=== PATIENT | male | born 1960 | race Caucasian/White ===

== ENCOUNTER 2019-04-25 04:34 | Observation (INO) ==
[2019-04-25] MEDS ORDERED: Ipratropium/Albuterol Neb 3 ML IH ONE (04:37)
[2019-04-25] MEDS ORDERED: methylPREDNISolone 125 MG/2 ML VIAL IVP ONE (04:38)
--- NOTE | 2019-04-25 04:39 | Emergency Department Note ---
Disposition Clinical Impression: Acute exacerbation of chronic obstructive airways disease Disposition: Admitted As Inpatient Condition: Good Time of Disposition: 06:30 General Adult HPI - General Chief complaint: ED Shortness of Breath/Dyspnea Stated complaint: ru Time Seen by Provider: 04/25/19 04:35 Source: patient Mode of arrival: EMS Limitations: no limitations Nursing Notes Reviewed: Yes Vital Signs Reviewed: Yes - History of Present Illness HPI Narrative: Patient complains of increasing shortness of breath for the past month. He denies any chest pain has a cough that is been occasionally productive. He has not had a fever that he is aware of. He says he quit smoking a month ago. Onset (ago): month(s) (one month ago gradually worsening) Location: chest Radiation: non-radiation Pain Scale: 0 Consistency: constant Improves with: nothing Worsens with: nothing Associated symptoms: Reports: cough - Related Data Home Medications Medication Instructions Recorded Confirmed Ipratropium/Albuterol Neb [Duoneb] 3 ml IH Q6HR 10/28/15 04/25/19 Allergies Allergy/AdvReac Type Severity Reaction Status Date / Time aspirin Allergy Irritable Verified 11/14/15 09:37 acetaminophen [From Vicodin] AdvReac Hives Verified 11/14/15 09:37 hydrocodone [From Vicodin] AdvReac Hives Verified 11/14/15 09:37 mesalamine [From Asacol] AdvReac Irritable Verified 11/14/15 09:37 All systems ED: reviewed and negative except as stated. Review of Systems: As Per HPI Constitutional: Denies: fever, chills, weakness, weight change Eyes: Denies: eye pain, eye discharge, vision change ENT ED: Denies: ear pain, throat pain, dental pain, hearing loss, epistaxis, congestion, dysphagia Cardiovascular: Denies: chest pain, palpitations, dyspnea on exertion, edema, sy ncope Respiratory: Reports: as per HPI, cough, dyspnea, wheezes, sputum production (Occasional yellow sputum) Gastrointestinal: Denies: abdominal pain, nausea, vomiting, diarrhea, constipation, hematemesis, melena, hematochezia Genitourinary: Denies: urgency, dysuria, frequency, hematuria Musculoskeletal: Denies: back pain, neck pain, arthralgia, myalgia Integumentary: Denies: rash, abrasion, lesions Neurological: Denies: headache, weakness, numbness, paresthesias, confusion, abnormal gait, vertigo Psychiatric: Denies: anxiety, depression, suicidal thoughts, homicidal thoughts, auditory hallucinations, visual hallucinations Endocrine: Denies: fatigue Hematological/Lymphatic: Denies: easy bleeding, easy bruising Allergic/Immunologic: Denies: facial swelling, urticaria Past Medical History - Past Medical History Attestation: Yes The following information was validated with the patient. Source: patient, nursing notes reviewed Medical history: Reports: COPD Psychiatric history: Reports: no psych history - Social History Smoking Status: Current every day smoker Alcohol use: Reports: occasionally Drug use: Reports: none Physical Exam - General Limitations: no limitations General appearance: alert, in no apparent distress - Head Head exam: atraumatic, normocephalic, normal inspection - Eye Eye exam: Present: normal appearance, PERRL, EOMI - ENT ENT exam: normal exam, normal oropharynx, mucous membranes moist - Neck Neck exam: Present: normal inspection, full ROM, trachea midline - Chest Chest inspection: Present: normal inspection, symmetric chest wall rise - Respiratory Respiratory exam: Present: respiratory distress (mild), wheezes, accessory muscle use, prolonged expiratory phase - Cardiovascular Cardiovascular exam: Present: regular rate, normal rhythm, normal heart sounds - Abdominal Exam Abdominal exam: Present: soft, Non-Tender. Absent: tenderness, distention, guarding, rebound, rigidity - Extremities Exam Extremities exam: Present: normal inspection, full ROM. Absent: tenderness, pedal edema - Back Exam Back exam: Present: normal inspection, full ROM. Absent: tenderness - Neurological Exam Neurological exam: Present: alert, oriented X3 - Psychiatric Psychiatric exam: Present: normal affect, normal mood - Skin Skin exam: Present: warm, dry, intact Medical Decision Making - [facility] Narrative Medical decision making narrative: I reviewed the patient's medication list Case was discussed with Dr. Shelby who graciously accepted admission - Lab Data Lab results reviewed: Yes I reviewed the patient's lab results. - Radiology Data Radiology results reviewed: Yes I reviewed the patient's radiology results. - EKG Data EKG #1 EKG attestation: Yes I reviewed and interpreted this EKG. EKG results narrative: EKG shows sinus tachycardia 3-119 bpm. MI interval 160 ms [place] 88 ms QTc interval 319 449 ms respectively R axis of [address] elevation is appreciated
[2019-04-25 05:14] LABS: Basophils # 0.1 K/mcL (0.0-0.2); Basophils % 0.6 %; Eosinophils # 0.8 K/mcL (0.0-0.6); Eosinophils % 6.6 %; Hematocrit 45.6 % (37.5-50.1); Immature Granulocytes % 0.2 % (0-4); Lymphocytes % 16.2 %; Mean Corpuscular HGB Conc 32.9 g/dL (31.6-35.5); Mean Corpuscular Hemoglobin 30.2 pg (28.0-33.3); Mean Corpuscular Volume 91.9 fL (83.0-100.0); Mean Platelet Volume 9.7 fL (9.4-12.4); Monocytes # 0.7 K/mcL (0.0-1.3); Monocytes % 5.4 %; Neutrophils # 8.8 K/mcL (1.6-8.9); Platelet Count 307 K/mcL (140-400); Red Blood Count 4.96 M/mcL (4.19-5.50); Red Cell Distribution Width 12.8 % (11.5-14.5); White Blood Count 12.4 K/mcL (4.3-11.1)
[2019-04-25 05:36] LABS: Alanine Aminotransferase 12 Units/L (7-52); Albumin 4.1 g/dL (3.5-5.7); Albumin/Globulin Ratio 1.1 (1.1-2.2); Alkaline Phosphatase 80 Units/L (34-104); Aspartate Amino Transferase 14 Units/L (13-39); BUN/Creatinine Ratio 17 (6-26); Bilirubin,Total 0.4 mg/dL (0.3-1.0); Blood Urea Nitrogen 17 mg/dL (6-20); Calcium 9.4 mg/dL (8.6-10.3); Carbon Dioxide 30 mEq/L (23-29); Chloride 101 mEq/L (98-107); Globulin 3.8 g/dL (2.4-3.5); Glucose 120 mg/dL (70-105); Osmolality,Calculated 291 (280-300); Potassium 4.1 mEq/L (3.5-5.1); Sodium 139 mEq/L (136-145); Total Protein 7.9 g/dL (6.4-8.9); Troponin I < 0.03 ng/mL (< 0.04); eGFR For African Americans > 60 (> 60); eGFR For Non-African Americans > 60 (> 60)
[2019-04-25] MEDS ORDERED: cefTRIAXone 1,000 MG in 0.9 % Sodium Chloride Mini Bag 100 ML IVPB ONE (05:43)
[2019-04-25] MEDS ORDERED: Naloxone 0.4 MG/ML INJ IVP PRN (06:44)
[2019-04-25] MEDS: Ipratropium/Albuterol Neb 3 ML IH SCH ×5 (08:28→23:20)
--- NOTE | 2019-04-25 11:58 | Internal Med History&Physical ---
Date of Encounter: 04/25/19 Time of Encounter: 11:25 Assessment and Plan (1) Asthmatic bronchitis Current visit: Yes Status: Acute He will be started on IV antibiotics with lactobacillus and IV steroids. Chest CT will be done to further evaluate. Qualifiers: Asthma severity: unspecified severity Asthma complication type: with acute exacerbation Qualified Code(s): J45.901 - Unspecified asthma with (acute) exacerbation (2) Acute exacerbation of chronic obstructive airways disease Current visit: Yes Status: Acute Rx as above. Room air oximetry will be checked on 6 minute walk prior to discharge. (3) Hyperglycemia Current visit: Yes Status: Acute Hemoglobin A1c will be ordered. Recheck FBS in a.m. (4) Weight loss Current visit: Yes Status: Acute TSH and chest CT will be ordered. (5) Arthralgia Current visit: Yes Status: Acute Uric acid level will be ordered. Naprosyn will be given. Qualifiers: Joint pain location: unspecified Qualified Code(s): M25.50 - Pain in unspecified joint Internal Medicine - H&P: HPI Chief complaint: Dyspnea Admitted From: Emergency Dept Plans for Post Hospital Care: Home History of present illness: Mr. Lucas is a 58 year old male who came to emergency room stating he had increased dyspnea over the past month. He reports significant cough with little productivity. He developed low back pain approximately 3 days previously which he attributes to severe coughing. His breathing seemed to worsen further so he came to emergency room. He was evaluated and felt to have exacerbation of COPD and was admitted to [facility] floor for ongoing care needs. Respiratory history is significant for having smoked since age 16 until quitting on month ago. He smoked up to 1-1/2 packs per day. PFTs 09/21/2015 showed FVC 70% predicted, FEV1 43% predicted, FEV1/FVC 47%, MVV 36% predicted, RV 179% predicted, and DLCO (uncorrected) 74% predicted. There was significant improvement in FEV1 postbronchodilator. He was diagnosed with moderate obstructive lung disease with air trapping. He does not use home oxygen. He reports he was diagnosed with pulmonary tuberculosis in childhood and received treatment for approximately one year. Past Med Surg Social Fam HX - Past Medical History Medical history: COPD Psychiatric history: no psych history - Social History Smoking Status: Former smoker Alcohol use: occasionally Drug use: none - Family History Mother Hx Family Respiratory Disorders: Yes Internal Medicine - H&P: Meds Ipratropium/Albuterol Neb [Duoneb] 3 ml IH Q6HR 10/28/15 [History] Allergy/AdvReac Type Severity Reaction Status Date / Time aspirin Allergy Irritable Verified 11/14/15 09:37 acetaminophen [From Vicodin] AdvReac Hives Verified 11/14/15 09:37 hydrocodone [From Vicodin] AdvReac Hives Verified 11/14/15 09:37 mesalamine [From Asacol] AdvReac Irritable Verified 11/14/15 09:37 All Systems PM: A 10-system review of systems was performed and is negative for pertinent findings except as documented above in the HPI. Review of systems: Gen.: He thinks his weight has decreased approximately 5 pounds in the past 2 months Cardiovascular: He denies hypertension OR heart failure angina DVT or pulmonary embolus Respiratory: As per history of present illness GI: He denies known disorders of his liver gallbladder or exocrine pancreas. He denies peptic ulcer disease melena or hematochezia. He states he quit use of alcohol approximately one year ago after drinking daily for approximately 30 years up to 12 pack beer. : He denies hematuria dysuria or kidney stones Neurologic: He denies large distribution strokes or seizures. Endocrine: He denies diabetes thyroid disease or hyperlipidemia Hematology/oncology: He denies blood disorders cancers or anemia Psychiatric: He has anxiety but denies depression or other mental health diagnoses [place] skeletal: He reports low back pain with coughing onset approximately 3 days ago. He has chronic right shoulder pain and frequent arthralgias of multiple joints. He denies known gout. - Constitutional Vitals: Temp Pulse Resp BP Pulse Ox 97.9 F 85 20 116/68 95 04/25/19 10:11 04/25/19 10:11 04/25/19 10:11 04/25/19 10:11 04/25/19 10:11 Exam: Gen.: He is a well-developed well-nourished male sitting in bed who appears slightly dyspneic and in mild to moderate pain HEENT: Head is atraumatic and normocephalic. Eyes: EOMI. There is no scleral icterus. Mouth: Mucosa is moist. Neck: Supple and nontender. There is no thyromegaly or adenopathy noted. Heart: Regular without murmurs gallops or ectopics Lungs: He has prolonged expiratory phase and mild diffuse wheezing. No egophony is heard. Abdomen: Soft and nontender. No masses or guarding are noted. Extremities: There is no cyanosis edema or clubbing noted. Dorsalis pedis and posterior tibial pulses are trace to 1+ palpable bilaterally. Neurologic: Mental status: He is talkative and a good historian. Cranial nerves: Smile is symmetric. Forehead wrinkles bilaterally. Tongue protrudes midline. EOMI. Motor: There is no pronator drift. Cerebellar: Finger to nose is intact bilaterally. Skin: Warm and dry Internal Med - H&P Results - Labs CBC & Chem 7: 04/25/19 05:00 04/25/19 05:00 Labs: Short CBC 04/25/19 Range/Units 05:00 WBC 12.4 H (4.3-11.1) K/mcL Hgb 15.0 (12.9-16.9) g/dL Hct 45.6 (37.5-50.1) % Plt Count 307 (140-400) K/mcL Neutrophils # 8.8 (1.6-8.9) K/mcL BMP 04/25/19 05:00 Sodium 139 Potassium 4.1 Chloride 101 Carbon Dioxide 30 H BUN 17 Creatinine 1.00 Glucose 120 H Calcium 9.4 Cardiac Enzymes 04/25/19 Range/Units 05:00 Troponin I < 0.03 (< 0.04) ng/mL Liver Function 04/25/19 Range/Units 05:00 Total Bilirubin 0.4 (0.3-1.0) mg/dL AST 14 (13-39) Units/L ALT 12 (7-52) Units/L Alkaline Phosphatase 80 (34-104) Units/L Albumin 4.1 (3.5-5.7) g/dL - Impressions ITS Impressions Chest X-Ray 04/25/19 04:37 IMPRESSION: No acute findings in the chest. COPD. D/ / Christel Abbott MD / Christel Abbott MD Interpreting Provider: Christel Abbott MD
[2019-04-25] MEDS ORDERED: ALPRAZolam 0.25 MG TABLET PO PRN (12:07)
[2019-04-25] MEDS: Azithromycin 500 MG in D5% in Water 250 ML IVPB SCH (12:35)
[2019-04-25] MEDS: Benzonatate 100 MG CAPSULE PO SCH ×3 (12:35→20:02)
[2019-04-25 13:29] LABS: Uric Acid 6.6 mg/dL (2.3-7.6)
[2019-04-25 13:47] LABS: Thyroid Stimulating Hormone 0.365 mcIU/mL (0.340-5.600)
[2019-04-25 14:20] LABS: Bilirubin,Urine Negative (Negative); Blood,Urine Small (Negative); Clarity,Urine Clear (Clear); Color,Urine Yellow (Yellow); Glucose,Urine (UA) 250 mg/dL (Normal); Ketones,Urine Trace mg/dL (Negative); Leukocyte Esterase,Urine Small (Negative); Nitrite,Urine Negative (Negative); PH,Urine 5.5 pH Units (5.0-8.0); Protein,Urine 100 mg/dL (Neg-Trace); Specific Gravity,Urine >= 1.030 (1.010-1.025); Urobilinogen,Urine Normal (Normal)
[2019-04-25 14:28] LABS: RBC,Urine 0-3 per hpf (0-3); Squamous Epithelial Cell,Urine Few per lpf (None-Few)
[2019-04-25 14:29] LABS: Bacteria,Urine Few per hpf (None-Few); Mucus,Urine Few (Few)
--- NOTE | 2019-04-25 14:32 | Electrocardiograph Report ---
[address] [address] Test Date: 2019-04-25 Pat Name: Kg Lucas Department: EDP-16 Room: [facility] Gender: M Front Desk Team Member: : 1960 Requested By: Malik Call Order Number: [id number] Reading MD: Tito Potts Measurements Intervals [place] Rate: 119 P: 82 AL: 160 QRS: 84 QRSD: 88 T: 77 QT: 319 QTc: 449 Interpretive Statements Sinus tachycardia Right atrial enlargement left ventricular hypertrophy Electronically Signed On 04-25-2019 14:31:18 EDT by Tito Potts
[2019-04-25] MEDS: methylPREDNISolone 125 MG/2 ML VIAL IVP SCH (15:05)
[2019-04-25 16:59] LABS: Estimated Average Glucose 137 mg/dl
[2019-04-25] MEDS: Lactobacillus 1 EACH CAP.SPRINK PO SCH (20:02)
[2019-04-26] MEDS: methylPREDNISolone 125 MG/2 ML VIAL IVP SCH ×2 (00:48→08:06)
[2019-04-26] MEDS ORDERED: Acetaminophen 325 MG TABLET PO PRN (00:53)
[2019-04-26] MEDS: Ipratropium/Albuterol Neb 3 ML IH SCH ×3 (03:43→12:53)
[2019-04-26] MEDS ORDERED: cefTRIAXone 1,000 MG in Water for inj. (sterile) 10 ML IVP SCH (05:00)
[2019-04-26] MEDS ORDERED: *HR* Enoxaparin 40 MG/0.4 ML SYRINGE SQ SCH (06:00)
[2019-04-26 07:20] LABS: Basophils % 0.1 %; Hematocrit 39.1 % (37.5-50.1); Hemoglobin 13.3 g/dL (12.9-16.9); Immature Granulocytes % 0.7 % (0-4); Lymphocytes # 0.6 K/mcL (0.6-4.6); Lymphocytes % 2.6 %; Mean Corpuscular Hemoglobin 31.1 pg (28.0-33.3); Mean Corpuscular Volume 91.4 fL (83.0-100.0); Mean Platelet Volume 10.1 fL (9.4-12.4); Monocytes # 0.5 K/mcL (0.0-1.3); Neutrophils # 21.2 K/mcL (1.6-8.9); Platelet Count 280 K/mcL (140-400); Red Blood Count 4.28 M/mcL (4.19-5.50); Red Cell Distribution Width 12.6 % (11.5-14.5); Segmented Neutrophils % 94.6 %; White Blood Count 22.4 K/mcL (4.3-11.1)
[2019-04-26 07:45] LABS: BUN/Creatinine Ratio 23 (6-26); Blood Urea Nitrogen 25 mg/dL (6-20); Carbon Dioxide 24 mEq/L (23-29); Chloride 103 mEq/L (98-107); Glucose 244 mg/dL (70-105); Osmolality,Calculated 296 (280-300); Sodium 137 mEq/L (136-145); eGFR For African Americans > 60 (> 60); eGFR For Non-African Americans > 60 (> 60)
[2019-04-26] MEDS: Lactobacillus 1 EACH CAP.SPRINK PO SCH (08:06)
[2019-04-26] MEDS: Benzonatate 100 MG CAPSULE PO SCH (08:06)
[2019-04-26 08:22] LABS: Platelet Estimate Normal (Normal)
[2019-04-26 11:02] VITALS: BP 124/66
[2019-04-26] MEDS: Azithromycin 500 MG in D5% in Water 250 ML IVPB SCH (12:11)
--- NOTE | 2019-04-26 14:35 | Discharge Summary ---
Orders not resulted at time of discharge: Pending orders 04/25/19 05:00 Culture,Blood [BC] Stat Date of Encounter: 04/26/19 Time of Encounter: 14:20 - Discharge Diagnosis (1) Asthmatic bronchitis Priority: Primary Status: Acute Qualifiers: Asthma severity: unspecified severity Asthma complication type: with acute exacerbation Qualified Code(s): J45.901 - Unspecified asthma with (acute) exacerbation (2) Acute exacerbation of chronic obstructive airways disease Priority: Secondary Status: Acute (3) Hyperglycemia Priority: Secondary Status: Acute (4) Weight loss Priority: Secondary Status: Acute (5) Arthralgia Priority: Secondary Status: Chronic Qualifiers: Joint pain location: unspecified Qualified Code(s): M25.50 - Pain in unspecified joint Hospital course: Mr. Lucas is a 58 year old male who came to emergency room stating he had increased dyspnea over the past month. He reports significant cough with little productivity. He developed low back pain approximately 3 days previously which he attributes to severe coughing. His breathing seemed to worsen further so he came to emergency room. He was evaluated and felt to have exacerbation of COPD and was admitted to [facility] for ongoing care needs. Initial orders were written by the emergency room physician. I saw him on April 25 and performed the history and physical. He was started on IV antibiotics with lactobacillus and IV steroids. He had significant clinical improvement with near complete resolution of wheezing by the following day. He wished to be discharged home. Room air oximetry showed saturation 91%. He will continue with oral antibiotics, probiotics, and prednisone for 3 additional days at discharge. Chest CT was done to further evaluate. There were emphysematous changes with several noncalcified lung nodules less than 6 mm diameter. There was bronchial wall thickening and increased interstitial markings compatible with chronic lung disease. His PCP can order repeat scan in 12 months to follow-up on the lung nodules. Hemoglobin A1c returned at 6.4% consistent with borderline diabetic. His PCP can continue to monitor. He will follow with his PCP Dr. Vyas within 1 week. - Time Spent with Patient Total time spent providing and/or coordinating discharge services: - Discharge Medications Prescriptions: New Cefuroxime PO [Ceftin] 500 mg PO Q12HR #6 tablet Lactobacillus [Culturelle] 1 each PO BID #6 cap.sprink predniSONE [PredniSONE] 10 mg PO BIDWM #6 tablet Albuterol Sulfate [Proair Hfa] 2 puff IH Q4H PRN #1 inh PRN Reason: Dyspnea ALPRAZolam [Xanax 0.25 MG Tablet] 0.25 mg PO TID PRN 4 Days #12 tablet PRN Reason: Anxiety Azithromycin [Zithromax] 250 mg PO DAILY #3 tablet Continued Ipratropium/Albuterol Neb [Duoneb] 3 ml IH Q6HR #30 inhsol Home Medications: ALPRAZolam [Xanax 0.25 MG Tablet] 0.25 mg PO TID PRN 4 Days #12 tablet 04/26/19 [Rx] Albuterol Sulfate [Proair Hfa] 2 puff IH Q4H PRN #1 inh 04/26/19 [Rx] Azithromycin [Zithromax] 250 mg PO DAILY #3 tablet 04/26/19 [Rx] Cefuroxime PO [Ceftin] 500 mg PO Q12HR #6 tablet 04/26/19 [Rx] Ipratropium/Albuterol Neb [Duoneb] 3 ml IH Q6HR #30 inhsol 04/26/19 [Rx] Lactobacillus [Culturelle] 1 each PO BID #6 cap.sprink 04/26/19 [Rx] predniSONE [PredniSONE] 10 mg PO BIDWM #6 tablet 04/26/19 [Rx] Allergies/Adverse Reactions: Allergy/AdvReac Type Severity Reaction Status Date / Time aspirin Allergy Irritable Verified 11/14/15 09:37 acetaminophen [From Vicodin] AdvReac Hives Verified 11/14/15 09:37 hydrocodone [From Vicodin] AdvReac Hives Verified 11/14/15 09:37 mesalamine [From Asacol] AdvReac Irritable Verified 11/14/15 09:37 Date of admission: 04/25/19 06:26 Primary care physician: Roberta Vyas M.D. - Constitutional Vitals: Temp Pulse Resp BP Pulse Ox 98.0 F 89 18 124/66 94 04/26/19 11:00 04/26/19 11:00 04/26/19 12:53 04/26/19 11:00 04/26/19 12:53 - Patient Status Disposition: Home, Self-Care Condition: Good - Discharge Instructions Follow Up With: NONE,PCP [Primary Care Provider] - 1 week - Diet and Activity Activity: resume usual activities as tolerated Diet: advance to your usual diet
== END 2019-04-26 15:18 | disposition home or self-care (01) ==
LOC: INPPIK 04:34 → EMEROOPIK 04:34 → INPPIK 06:46
PROVIDERS: ADMIT Internal Medicine; ATTEND Internal Medicine

== ENCOUNTER 2019-12-14 18:12 | Observation (INO) ==
[2019-12-14] MEDS ORDERED: Ipratropium/Albuterol Neb 3 ML IH ONE ×2 (18:36)
[2019-12-14] MEDS ORDERED: methylPREDNISolone 125 MG/2 ML VIAL IVP ONE (18:36)
[2019-12-14 19:11] LABS: Basophils # 0.1 K/mcL (0.0-0.2); Basophils % 0.8 %; Eosinophils # 1.1 K/mcL (0.0-0.6); Eosinophils % 9.6 %; Hematocrit 48.9 % (37.5-50.1); Hemoglobin 16.1 g/dL (12.9-16.9); Immature Granulocytes % 0.3 % (0-4); Lymphocytes % 17.2 %; Mean Corpuscular HGB Conc 32.9 g/dL (31.6-35.5); Mean Corpuscular Hemoglobin 30.1 pg (28.0-33.3); Mean Corpuscular Volume 91.6 fL (83.0-100.0); Mean Platelet Volume 9.8 fL (9.4-12.4); Monocytes # 0.7 K/mcL (0.0-1.3); Monocytes % 6.3 %; Neutrophils # 7.6 K/mcL (1.6-8.9); Platelet Count 317 K/mcL (140-400); Red Blood Count 5.34 M/mcL (4.19-5.50); Red Cell Distribution Width 12.4 % (11.5-14.5); Segmented Neutrophils % 65.8 %; White Blood Count 11.5 K/mcL (4.3-11.1)
[2019-12-14 19:30] LABS: BUN/Creatinine Ratio 15 (6-26); Blood Urea Nitrogen 15 mg/dL (6-20); Calcium 10.1 mg/dL (8.6-10.3); Carbon Dioxide 33 mEq/L (23-29); Chloride 97 mEq/L (98-107); Glucose 104 mg/dL (70-105); Osmolality,Calculated 285 (280-300); Potassium 4.4 mEq/L (3.5-5.1); Sodium 137 mEq/L (136-145); eGFR For African Americans > 60 (> 60); eGFR For Non-African Americans > 60 (> 60)
[2019-12-14] MEDS ORDERED: Ipratropium/Albuterol Neb 3 ML IH SCH (20:30)
[2019-12-14] MEDS ORDERED: Azithromycin 500 MG in 0.9 % Sodium Chloride 250 ML IVPB SCH (21:00)
[2019-12-14] MEDS ORDERED: ALPRAZolam 0.5 MG TABLET PO PRN (22:35)
[2019-12-15] MEDS: Ipratropium/Albuterol Neb 3 ML IH SCH ×3 (00:50→08:39)
[2019-12-15] MEDS ORDERED: methylPREDNISolone 125 MG/2 ML VIAL IVP SCH ×3 (02:00)
[2019-12-15 06:03] VITALS: BP 106/65
[2019-12-15] MEDS ORDERED: Naloxone 0.4 MG/ML INJ IVP PRN (09:28)
[2019-12-15] MEDS ORDERED: MethylPREDNISolone 40 MG/ML VIAL IVP SCH (09:30)
[2019-12-15] MEDS ORDERED: cefTRIAXone 1,000 MG in Water for inj. (sterile) 10 ML IVPB SCH (10:00)
[2019-12-15 10:27] LABS: Hematocrit 44.9 % (37.5-50.1); Hemoglobin 14.7 g/dL (12.9-16.9); Mean Corpuscular HGB Conc 32.7 g/dL (31.6-35.5); Mean Corpuscular Hemoglobin 29.9 pg (28.0-33.3); Mean Corpuscular Volume 91.3 fL (83.0-100.0); Mean Platelet Volume 9.9 fL (9.4-12.4); Platelet Count 305 K/mcL (140-400); Red Blood Count 4.92 M/mcL (4.19-5.50); Red Cell Distribution Width 12.4 % (11.5-14.5); White Blood Count 15.5 K/mcL (4.3-11.1)
[2019-12-15 10:49] LABS: BUN/Creatinine Ratio 23 (6-26); Blood Urea Nitrogen 23 mg/dL (6-20); Calcium 9.6 mg/dL (8.6-10.3); Carbon Dioxide 28 mEq/L (23-29); Chloride 98 mEq/L (98-107); Glucose 226 mg/dL (70-105); Osmolality,Calculated 291 (280-300); Potassium 4.5 mEq/L (3.5-5.1); Sodium 135 mEq/L (136-145); eGFR For African Americans > 60 (> 60); eGFR For Non-African Americans > 60 (> 60)
== END 2019-12-15 10:37 | disposition left against medical advice (07) ==
LOC: INPPIK 18:12 → EMEROOPIK 18:12 → INPPIK 20:54
PROVIDERS: ADMIT Student in an Organized Health Care Education/Training Program; ATTEND Student in an Organized Health Care Education/Training Program

== ENCOUNTER 2019-12-28 15:47 | Observation (INO) ==
[2019-12-28] MEDS ORDERED: methylPREDNISolone 125 MG/2 ML VIAL IVP ONE (16:13)
[2019-12-28] MEDS ORDERED: 0.9 % Sodium Chloride 1,000 ML IV ONE (16:13)
[2019-12-28] MEDS ORDERED: Azithromycin 500 MG in 0.9 % Sodium Chloride 250 ML IVPB ONE ×2 (16:13→18:12)
[2019-12-28 16:20] LABS: ABG Base Excess 0 mEq/L (-2 to 3); ABG HCO3 27 mEq/L (21-27); ABG Oxygen Saturation 86 % (95-98); ABG PCO2 50 mmHg (35-45); ABG PH 7.34 pH Units (7.32-7.45); ABG PO2 55 mmHg (85-104); ABG TCO2 29 mEq/L (20-26)
[2019-12-28 16:26] LABS: Basophils # 0.1 K/mcL (0.0-0.2); Basophils % 0.3 %; Eosinophils % 5.2 %; Hematocrit 44.7 % (37.5-50.1); Hemoglobin 14.7 g/dL (12.9-16.9); Immature Granulocytes % 0.4 % (0-4); Lymphocytes # 1.7 K/mcL (0.6-4.6); Lymphocytes % 8.6 %; Mean Corpuscular HGB Conc 32.9 g/dL (31.6-35.5); Mean Corpuscular Hemoglobin 30.4 pg (28.0-33.3); Mean Corpuscular Volume 92.4 fL (83.0-100.0); Mean Platelet Volume 9.3 fL (9.4-12.4); Monocytes # 1.2 K/mcL (0.0-1.3); Neutrophils # 15.7 K/mcL (1.6-8.9); Platelet Count 309 K/mcL (140-400); Red Blood Count 4.84 M/mcL (4.19-5.50); Red Cell Distribution Width 12.7 % (11.5-14.5); Segmented Neutrophils % 79.5 %; White Blood Count 19.8 K/mcL (4.3-11.1)
[2019-12-28 16:41] LABS: INR 1.1
[2019-12-28 16:45] LABS: Alanine Aminotransferase 17 Units/L (7-52); Albumin 4.3 g/dL (3.5-5.7); Albumin/Globulin Ratio 1.2 (1.1-2.2); Alkaline Phosphatase 81 Units/L (34-104); Aspartate Amino Transferase 16 Units/L (13-39); BUN/Creatinine Ratio 16 (6-26); Bilirubin,Total 0.6 mg/dL (0.3-1.0); Blood Urea Nitrogen 14 mg/dL (6-20); Calcium 9.4 mg/dL (8.6-10.3); Carbon Dioxide 29 mEq/L (23-29); Chloride 97 mEq/L (98-107); Globulin 3.6 g/dL (2.4-3.5); Glucose 108 mg/dL (70-105); Osmolality,Calculated 279 (280-300); Potassium 4.2 mEq/L (3.5-5.1); Sodium 134 mEq/L (136-145); Total Protein 7.9 g/dL (6.4-8.9); eGFR For African Americans > 60 (> 60); eGFR For Non-African Americans > 60 (> 60)
[2019-12-28 16:46] LABS: Troponin I < 0.03 ng/mL (< 0.04)
[2019-12-28 17:44] LABS: Bilirubin,Urine Negative (Negative); Blood,Urine Small (Negative); Clarity,Urine Clear (Clear); Color,Urine Yellow (Yellow); Glucose,Urine (UA) Normal (Normal); Ketones,Urine Negative (Negative); Leukocyte Esterase,Urine Negative (Negative); Nitrite,Urine Negative (Negative); PH,Urine 5.5 pH Units (5.0-8.0); Protein,Urine 100 mg/dL (Neg-Trace); Specific Gravity,Urine 1.025 (1.010-1.025); Urobilinogen,Urine Normal (Normal)
[2019-12-28 17:50] LABS: Granular Casts,Urine Few per lpf (None Seen); Mucus,Urine Few per lpf (Few); Squamous Epithelial Cell,Urine Few per lpf (None-Few); WBC,Urine 0-3 per hpf (0-3)
[2019-12-28] MEDS ORDERED: cefTRIAXone 1,000 MG in 0.9 % Sodium Chloride Mini Bag 100 ML IVPB ONE (18:12)
[2019-12-28] MEDS ORDERED: Naloxone 0.4 MG/ML INJ IVP PRN (18:59)
[2019-12-28] MEDS ORDERED: Acetaminophen 325 MG TABLET PO PRN (18:59)
[2019-12-28] MEDS ORDERED: Ondansetron 4 MG/2 ML VIAL IVP PRN (18:59)
[2019-12-28] MEDS ORDERED: Ipratropium/Albuterol Neb 3 ML IH PRN (19:02)
[2019-12-28 19:14] LABS: Amphetamine Screen,Urine Negative ng/mL (Cutoff=1000); Barbiturate Screen,Urine Negative ng/mL (Cutoff=200); Benzodiazepines Screen,Urine Negative ng/mL (Cutoff=200); Cannabinoid Screen,Urine Negative ng/mL (Cutoff = 50); Cocaine Screen,Urine Negative ng/mL (Cutoff= 300); Opiate Screen,Urine Positive ng/mL (Cutoff=300); Phencyclidine Screen,Urine Negative ng/mL (Cutoff=25)
[2019-12-28] MEDS: 0.9 % Sodium Chloride 1,000 ML IVC SCH (20:41)
[2019-12-28] MEDS: Nicotine 21 MG PATCH.TD24 TD SCH (21:08)
[2019-12-29] MEDS: MethylPREDNISolone 40 MG/ML VIAL IVP SCH ×4 (00:23→17:28)
[2019-12-29] MEDS: 0.9 % Sodium Chloride 1,000 ML IVC SCH (03:55)
[2019-12-29 06:11] LABS: Basophils % 0.1 %; Eosinophils % 0.1 %; Hematocrit 42.3 % (37.5-50.1); Hemoglobin 14.1 g/dL (12.9-16.9); Immature Granulocytes % 0.2 % (0-4); Lymphocytes # 0.5 K/mcL (0.6-4.6); Lymphocytes % 4.9 %; Mean Corpuscular HGB Conc 33.3 g/dL (31.6-35.5); Mean Corpuscular Hemoglobin 30.1 pg (28.0-33.3); Mean Corpuscular Volume 90.2 fL (83.0-100.0); Mean Platelet Volume 9.3 fL (9.4-12.4); Monocytes # 0.1 K/mcL (0.0-1.3); Monocytes % 1.5 %; Platelet Count 278 K/mcL (140-400); Red Blood Count 4.69 M/mcL (4.19-5.50); Red Cell Distribution Width 12.4 % (11.5-14.5); Segmented Neutrophils % 93.2 %; White Blood Count 9.5 K/mcL (4.3-11.1)
[2019-12-29 06:13] LABS: Neutrophils # 8.9 K/mcL (1.6-8.9)
[2019-12-29 06:32] LABS: BUN/Creatinine Ratio 18 (6-26); Blood Urea Nitrogen 15 mg/dL (6-20); Carbon Dioxide 26 mEq/L (23-29); Chloride 103 mEq/L (98-107); Glucose 131 mg/dL (70-105); Osmolality,Calculated 287 (280-300); Potassium 4.3 mEq/L (3.5-5.1); Sodium 137 mEq/L (136-145); eGFR For African Americans > 60 (> 60); eGFR For Non-African Americans > 60 (> 60)
[2019-12-29] MEDS: Nicotine 21 MG PATCH.TD24 TD SCH (09:44)
[2019-12-29] MEDS ORDERED: Ibuprofen 600 MG TABLET PO PRN (09:48)
[2019-12-29] MEDS ORDERED: *HR* LORazepam 2 MG/ML VIAL IVP ONE (17:04)
[2019-12-29] MEDS ORDERED: cefTRIAXone 1,000 MG in Water for inj. (sterile) 10 ML IVPB SCH (18:00)
[2019-12-30] MEDS: MethylPREDNISolone 40 MG/ML VIAL IVP SCH ×3 (00:43→11:21)
[2019-12-30] MEDS: Ipratropium/Albuterol Neb 3 ML IH SCH ×2 (08:57→12:08)
[2019-12-30] MEDS: Nicotine 21 MG PATCH.TD24 TD SCH (09:52)
[2019-12-30 10:14] VITALS: BP 115/67
== END 2019-12-30 14:12 | disposition home or self-care (01) ==
LOC: EMEROOPIK 15:47 → INPPIK 15:47
PROVIDERS: ADMIT Family Medicine; ATTEND Family Medicine